=== PATIENT | female | born 1980 | race Caucasian/White ===

== ENCOUNTER → 2016-08-11 | Outpatient (CLI) | payer BC ==
--- NOTE | ~2016-08-11 | MU ---
Unit #: [id number] #: [id number] Patient: SILVINA GLYNN [id number] [address] [address] [id number] O MR#: [id number] NAME: SILVINA GLYNN : 1980 SEX: F STUDY DATE/TIME: 08/11/2016 UNIT: [facility] ROOM: STUDY DESCRIPTION: Attending Physician: Concha Mansfield M.D. Referring Physician: Concha Mansfield M.D. Primary Care Physician: Natalia Mcdaniel A.P.R.N. CARDIOLOGY REPORT EXAM MUGA scan. PROCEDURE 26.7 mCi of technetium 99m labeled RBCs was injected. Images were obtained in left lateral, anteroposterior, and left anterior oblique views. The left ventricular ejection fraction is calculated to be 52%. CONCLUSION The left ventricular ejection fraction is calculated to be 52% by MUGA scan. Dictated by... Paco Kaplan TD: 08/11/2016 14:21 JOB #: [id number] CARDIOLOGY REPORT Page 1 of 1 X Concha Mansfield MD <ELECTRONICALLY SIGNED> 11/04/16 1429 CARDIOLOGY REPORT
== END | disposition home or self-care (01) ==
LOC: CNUC 11:36
DX: I42.9 Cardiomyopathy, unspecified (principal)
CPT/HCPCS: 78472; A9560